=== PATIENT | male | born 1955 | race Caucasian/White ===

== ENCOUNTER 2020-02-15 05:49 | Inpatient (IN) | payer MEDICARE, OTHER ==
[2020-02-15] MEDS ORDERED: Lidocaine 1% (PF) 30 ML VIAL ONE (07:07)
[2020-02-15] MEDS ORDERED: Nitroglycerin 100MG/250ML BOT 250 ML ONE (08:11)
[2020-02-15] MEDS ORDERED: Heparin 10,000 UNITS/ 10 ML VIAL ONE (08:11)
[2020-02-15] MEDS ORDERED: Verapamil 5 MG/2 ML VIAL ONE (08:11)
[2020-02-15] MEDS ORDERED: Midazolam HCl 2 mg/2 ml Vial ONE ×4 (08:29→12:26)
[2020-02-15] MEDS ORDERED: Fentanyl 100 MCG/2 ML VIAL ONE (08:29)
[2020-02-15] MEDS ORDERED: hydrALAZINE 20 MG/ML VIAL ONE (09:30)
[2020-02-15] MEDS ORDERED: Iopamidol 370 76% 100 ML VIAL ONE (10:05)
[2020-02-15] MEDS ORDERED: Ketorolac Tromethamine 30 MG/ML VIAL ONE (10:10)
[2020-02-15] MEDS ORDERED: Magnesium Sulfate 1 GM/2 ML VIAL ONE (10:10)
[2020-02-15] MEDS ORDERED: Heparin 30,000 units/30 ml VIAL ONE (10:10)
[2020-02-15] MEDS ORDERED: Thrombin 5000 UNITS/5 ML VIAL ONE (10:10)
[2020-02-15] MEDS ORDERED: Calcium Chloride 1 GM/10 ML Abboject SYRINGE ONE (10:10)
[2020-02-15] MEDS ORDERED: Ondansetron PF 4 MG/2 ML Vial ONE (10:10)
[2020-02-15] MEDS ORDERED: Rocuronium Bromide 10 MG/ML (10ML VIAL) ONE (10:10)
[2020-02-15] MEDS ORDERED: Potassium Chloride 60 MEQ/30 ML VIAL ONE (10:10)
[2020-02-15] MEDS ORDERED: Glycopyrrolate 0.2 MG/ML 5 ML SYRINGE ONE (10:10)
[2020-02-15] MEDS ORDERED: Protamine Sulfate 250 MG/25 ML VIAL ONE (10:10)
[2020-02-15] MEDS ORDERED: Lidocaine 1% PF 5 ML VIAL ONE (10:10)
[2020-02-15] MEDS ORDERED: Vecuronium 10 MG VIAL ONE (10:10)
[2020-02-15] MEDS ORDERED: EPHEDRINE 25 MG/5 ML SYRINGE ONE (10:10)
[2020-02-15] MEDS ORDERED: Papaverine 60 MG/2 ML VIAL ONE (10:10)
[2020-02-15] MEDS ORDERED: Sodium Bicarb 50 MEQ/50 ML Abboject 8.4% SYRINGE ONE (10:10)
[2020-02-15] MEDS ORDERED: Lidocaine 2% PF 5 ML VIAL ONE (10:10)
[2020-02-15] MEDS ORDERED: Heparin 5,000 UNITS/ML VIAL ONE (10:10)
[2020-02-15] MEDS ORDERED: PROPOFOL 200 MG/20 ML VIAL ONE (10:10)
[2020-02-15] MEDS ORDERED: Aminocaproic Acid 5 GM/20 ML VIAL ONE (10:10)
[2020-02-15] MEDS ORDERED: Cardioplegic Soln 1,000 ML BAG ONE (10:10)
[2020-02-15 10:46] LABS: Cardiac Risk 2.5 (Less than 4.5)
[2020-02-15] MEDS ORDERED: Albumin 5% 500 ML ONE (11:16)
[2020-02-15] MEDS ORDERED: Communication Order-Pharmacy FS SCH (11:26)
[2020-02-15] MEDS ORDERED: Dexmedetomidine 200 MCG/2 ML VIAL ONE (11:39)
[2020-02-15] MEDS ORDERED: Phenylephrine 10 MG/ML VIAL ONE (11:39)
[2020-02-15] MEDS ORDERED: Fentanyl 250 MCG/5 ML VIAL ONE (11:39)
[2020-02-15] MEDS ORDERED: Heparin 10,000 UNITS/1 ML VIAL 30,000 UNITS in Sodium Chloride 0.9% 1,000 ML FS SCH (11:45)
[2020-02-15] MEDS ORDERED: CEFAZOLIN 2 GM in Premix Bag 1 BAG IVPB SCH (12:30)
--- NOTE | 2020-02-15 13:01 | RAD ---
XR Chest 1 View Portable HISTORY: Preop open heart surgery COMPARISON: None FINDINGS: The heart size is normal. The lungs are well expanded without focal areas of consolidation, pneumothorax or pleural effusions. IMPRESSION: No radiographic evidence of acute cardiopulmonary process.
--- NOTE | 2020-02-15 13:59 | CON ---
DATE OF CONSULTATION: 02/15/2020 REQUESTING PHYSICIAN: Dr. Carpenter. CHIEF COMPLAINT: Epigastric burning pain on exertion. HISTORY OF PRESENT ILLNESS: The patient is a 65-year-old man with minimal past medical history. He normally is quite vigorous. 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 He describes playing 18 to 36 holes of golf and using a push mower to mow thick grass. He is noted that he has begun having a bit of burning pain in his epigastrium when he does these activities. He has not had any discomfort elsewhere in his chest. He has not had any shortness of breath, diaphoresis, nausea, or radiations into his throat, jaws, shoulders, or arms. He underwent outpatient stress testing that showed a large anterior defect and he was brought in today electively for cardiac catheterization and that shows a right-dominant system with an extremely tight distal left main lesion and preserved left ventricular systolic function. PAST MEDICAL HISTORY: Significant for gout and hypertension. He has had a history of supraventricular tachycardia, but he has not tolerated beta blockade due to bradycardia. HOME MEDICATIONS: 1. Aspirin. 2. Zocor 20 mg a day. 3. Losartan. 4. Allopurinol. 5. Coenzyme Q10. SOCIAL HISTORY: The patient used to smoke, but quit smoking about 11 years ago. He started vaping at that time, but recently in the last few months has quit. FAMILY HISTORY: Significant for diabetes. No first degree relatives have known coronary or cerebrovascular disease. REVIEW OF SYSTEMS: The patient denies any eye, speech, facial, or extremity symptoms consistent with TIAs. He denies any shortness of breath, orthopnea, or PND. He denies any pedal edema. He denies any claudication. PHYSICAL EXAMINATION: VITAL SIGNS: He is 5 feet and 5 inches, and weighs 165 pounds. Heart rate is 52, blood pressure 144/73. HEENT: He has no xanthelasma. NECK: No JVD. No carotid bruits. CHEST: Clear to auscultation. HEART: He has a regular rate and rhythm. ABDOMEN: Soft and nontender. EXTREMITIES: He has easily palpable radial, femoral, and dorsalis pedis pulses. He has no obvious varicosities. He has no clubbing, cyanosis, or edema. NEUROLOGIC: Grossly nonfocal. LABORATORY EXAM: He has a white count of 17.1, hemoglobin 16.3, hematocrit 49.9, platelet count of 104,000. PT was 12.7, INR 1.0, PTT 25.1. Sodium 139, potassium 4.4, chloride 104, CO2 of 25, glucose 110, BUN 16, creatinine 1.07, and estimated GFR of 69. Triglycerides of 51, cholesterol 131, LDL 68, HDL 53. Calcium is 9.2. His chest x-ray is clear, no aortic knob calcification or cardiomegaly. His cardiac catheterization shows a right-dominant system. He has about 95% or perhaps greater lesion in his distal left main. He has small to moderate-size ramus, large LAD and circumflex system. The proximal LAD has some lesion at 50% to 60% prior to high diagonal. The circumflex proper is free of disease. There is a fairly large obtuse marginal and then the groove circumflex terminates in some tiny OMs. The right coronary has about 70% lesion in its proximal and a little bit of irregularity in its midportion near the origin of an acute marginal. The origin of the PDA appears to most likely be free of disease, but then there is scattered disease in its mid and distal portions. The posterolateral branch at least proximally appears fairly good size and is free of disease. LVEF is around 60%. Aortic pressure was 160/74 with a mean of 110 on pullback from the LV of 139/-1 with an EDP of 15. IMPRESSION AND PLAN: Extremely high-grade distal left main lesion in a patient who is currently stable. I discussed with him the natural history of left main disease and I have recommended coronary artery bypass grafting. Since it is relatively early in the day, my recommendation is to be to proceed as soon as a room is available while he is still in stable condition rather than scheduling this for tomorrow or thereafter. Job ID: [id number]
--- NOTE | 2020-02-15 16:47 | HP ---
CHIEF COMPLAINT: Angina. HISTORY OF PRESENT ILLNESS: Mr. Diaz is a very pleasant 65-year-old white gentleman, who comes to the hospital for planned heart catheterization. He was seen in the office for an irregular heartbeat. He also voiced a chest burning when he would do any exertion. Stress and echo were both performed and showed severe findings, so he was brought to the catheterization lab, and heart procedure was done this morning that showed severe left main disease about 80% to 90% stenosis and severe right coronary artery, so he was admitted as his coronary artery disease is severe and unstable. PAST MEDICAL HISTORY: 1. Hepatitis C. 2. Hyperlipidemia. 3. Hypertension. 4. Gout. 5. Chronic kidney disease, stage 3. 6. Hypogonadism. PAST SURGICAL HISTORY: None. FAMILY HISTORY: Heart disease in mother, stomach cancer and pneumonia in family members. SOCIAL HISTORY: Former tobacco use, quit smoking about one month ago. He drinks about 3 to 4 beers every day. No drug use. OUTPATIENT MEDICATIONS: 1. Aspirin 81 a day. 2. Allopurinol. 3. Coenzyme Q10. 4. Losartan 100 mg a day. 5. Simvastatin 10 mg at bedtime. ALLERGIES: NO KNOWN DRUG ALLERGIES. REVIEW OF SYSTEMS: A 12-point review of systems was done and was found to be negative other than stated in the history of present illness.. PHYSICAL EXAMINATION: VITAL SIGNS: Temperature 97.2, pulse 87, respiratory rate 16, saturating 98% on room air, and blood pressure 162/98. GENERAL: Awake, alert, and oriented x3. No distress. HEENT: Normocephalic and atraumatic. NECK: Supple. LUNGS: Clear. CARDIOVASCULAR: S1 and S2. No S3 or S4. No murmurs. No rubs. ABDOMEN: Soft. Positive bowel sounds. EXTREMITIES: No edema. SKIN: Warm and dry. LABORATORY DATA: Laboratory work was reviewed. Triglycerides of 51, cholesterol total 131, LDL of 68, and HDL of 53. White count was 17, with a slight amount of smudge cells in mostly lymphocytes, 76% lymphocytes. Coags were normal. Chemistries were unremarkable with normal GFR at 81 a month ago, 69 now, just creatinine 1.07. UA was unremarkable just a month ago. COVID PCR was not detected. ASSESSMENT: 1. Severe left main and right coronary artery disease. 2. Hypertension. 3. Hyperlipidemia. 4. Nonsustained supraventricular tachycardia, on recent monitor. PLAN: 1. Consult Cardiothoracic Surgery for coronary artery bypass grafting, should get a CURTIS to the LAD, a vein graft to circumflex, and a vein graft to the RCA. 2. We will admit him to the hospital and he is not stable to be discharged home at any point until bypass has been done. 3. Further recommendations per evaluation by Cardiothoracic Surgery. Job ID: [id number]
[2020-02-15] MEDS ORDERED: Nitroglycerin 50 MG/250 ML BOT 250 ML IVPB PRN (18:21)
[2020-02-15] MEDS ORDERED: Guaifenesin DM 100-10/5 ML UDCUP PO PRN (18:21)
[2020-02-15] MEDS ORDERED: niCARdipine 25 MG in Sodium Chloride 0.9% 250 ML 240 ML IVPB PRN (18:21)
[2020-02-15] MEDS ORDERED: Morphine 2 MG/ML VIAL SLOW IVP PRN (18:21)
[2020-02-15] MEDS ORDERED: Norepinephrine 8 MG/0.9% NS 250 ML IVPB PRN (18:21)
[2020-02-15] MEDS ORDERED: Promethazine HCl 25 MG/ML VIAL IM PRN (18:21)
[2020-02-15] MEDS ORDERED: hydrALAZINE 20 MG/ML VIAL SLOW IVP PRN (18:21)
[2020-02-15] MEDS ORDERED: Potassium Chloride 20 MEQ/100 ML PREMIX BAG IVPB PRN (18:21)
[2020-02-15] MEDS ORDERED: Ondansetron PF 4 MG/2 ML Vial IVP PRN (18:21)
[2020-02-15] MEDS ORDERED: Acetaminophen 325 MG TAB PO PRN (18:21)
[2020-02-15] MEDS ORDERED: Hetastarch 6% 500 ML 500 ML IVPB PRN (18:21)
[2020-02-15] MEDS ORDERED: Post-Op Insulin Drip Protocol IVPB ONE (18:21)
[2020-02-15] MEDS ORDERED: Mag-Al 1200 mg/1200 mg/30 ML UDCUP PO PRN (18:21)
[2020-02-15] MEDS ORDERED: Bisacodyl 10 MG SUPP PR PRN (18:21)
[2020-02-15] MEDS ORDERED: Fentanyl 100 MCG/2 ML VIAL SLOW IVP PRN ×2 (18:21)
[2020-02-15] MEDS ORDERED: Bisacodyl 5 MG TAB PO PRN (18:21)
[2020-02-15 18:22] VITALS: BMI 29.9
[2020-02-15 18:46] LABS: INR-International Normal Ratio 1.4; PTT 29.7 sec (22.9-36.1); Prothrombin Time 17.1 sec (12.0-14.7)
--- NOTE | 2020-02-15 18:46 | RAD ---
PORTABLE CHEST ONE VIEW: 02/15/20 at 6:15 p.m. HISTORY: Postop open heart surgery. FINDINGS/IMPRESSION: Comparison made with exam of earlier today. Changes of median sternotomy are seen. There is a right subclavian central line with tip in the proje ction of the cavoatrial junction. Mediastinal drains were present. The heart size is normal. The aort a is tortuous. No lobar consolidation, pneumothoraces or pleural effusions are seen. POS: MZA
[2020-02-15 18:55] LABS: Anion Gap 15 mmol/L (10-20); BUN (Urea Nitrogen) 16 mg/dL (8.4-25.7); Calc. Creatinine Clearance 93 mL/min (70-130); Carbon Dioxide 19 mmol/L (23-31); Chloride 112 mmol/L (98-107); Estimated GFR-MDRD 85; Glucose 151 mg/dL (80-115); Potassium 4.6 mmol/L (3.5-5.1); Sodium 141 mmol/L (136-145)
[2020-02-15 18:59] LABS: Hemoglobin 13.6 g/dL (14.0-18.0); Mean Corpuscular HGB CONC 33.3 g/dL (32.0-36.0); Mean Corpuscular Hemoglobin 32.3 pg (27.0-31.0); Mean Corpuscular Volume 96.9 fL (78.0-98.0); Mean Platelet Volume 8.7 fL (7.4-10.4); Platelet Count 88 thou/uL (130-400); RBC Distribution Width 12.3 % (11.5-14.5); Red Blood Cell (RBC) Count 4.21 mill/uL (4.70-6.10); White Blood Cell (WBC) Count 20.8 thou/uL (4.8-10.8)
[2020-02-15] MEDS ORDERED: Dextrose 50% Abboject 50 ML SYRINGE SLOW IVP PRN (19:15)
[2020-02-15] MEDS ORDERED: Insulin Regular 300 UNITS/3 ML VIAL SC PRN (19:15)
[2020-02-15] MEDS ORDERED: HUMULIN R 100 UNITS in Sodium Chloride 0.9% 100 ML IVPB SCH (19:15)
[2020-02-15] MEDS ORDERED: Dextrose 5% in Water 1,000 ML IV PRN (19:15)
[2020-02-15 19:20] LABS: Band 30 % (5-11); Lymphocytes 15 % (21-51); MDiff Complete? YES; Monocytes 4 % (0-10); Neutrophil 46 % (42-75); Platelet Morphology Comment Appears Decreased; Polychromasia SLIGHT = 2-3 cells (100X) (0-2/hpf); Reactive Lymphocytes 5 % (0-10)
[2020-02-15] MEDS: HYDROcodone/Acetaminophen 5/325 mg Tablet PO PRN (19:27)
[2020-02-15] MEDS: Famotidine/PF 20 mg/2ml Vial SLOW IVP SCH (20:19)
--- NOTE | 2020-02-15 20:25 | OP ---
DATE OF PROCEDURE: 02/15/2020 PROCEDURES PERFORMED: Emergent coronary artery bypass grafting x4 with left internal mammary artery to the distal LAD and reverse greater saphenous vein graft from aorta to the ramus intermedius, from the aorta to the first obtuse marginal, and from the aorta to the RCA/PDA; sternal marrow biopsy. PREOPERATIVE DIAGNOSIS: Left main coronary artery disease; possible blood dyscrasia. POSTOPERATIVE DIAGNOSIS: Left main coronary artery disease; possible blood dyscrasia. DRIVER MERCHANDISER: Chago. ANESTHESIA: General endotracheal anesthesia. INDICATIONS: The patient is a 65-year-old man with minimal past medical history, who had been having stable pattern of exertional epigastric discomfort. He had a large anterior defect on stress testing and cardiac catheterization demonstrated a subtotal distal left main lesion. He had leukocytosis with some concern about lymphocyte morphology on his preoperative studies. FINDINGS: Pump time 94 minutes. Cross-clamp time 66 minutes. Good quality JEREMIAS and saphenous vein. The saphenous vein got a little bit small below the knee. There was palpable plaque in the posterior aspect of the base of the innominate artery and the right posterolateral aspect of the ascending aorta prompting construction of proximal vein graft anastomoses under cross-clamp. The LAD was about 2 mm, good quality vessel. The ramus intermedius was about 1.5 mm. The OM was about 2 mm. The RCA was about 2 to 2.5 mm. The PDA was about 1.5 mm proximally. It was a diffusely diseased vessel that got very small distally. DESCRIPTION OF PROCEDURE: After informed consent was obtained, the patient was taken to the operating room, placed in supine position on the operating table. After the induction of general anesthesia, his left greater saphenous vein was ultrasonographically mapped and marked. He was placed in Trendelenburg. His right upper chest was prepped and draped in sterile fashion. A triple-lumen central line kit was used to place right subclavian central line by the Seldinger technique. All 3 ports easily aspirated and flushed. The line was secured. The patient's torso, groins, and lower extremities were prepped and draped in sterile fashion. An incision was made just above the left knee to expose the greater saphenous vein. It was endoscopically harvested using that as a port site from groin to mid calf. A small stab incision prove feasible for the distal ligation and division point. A slightly larger incision was made in the groin. The groin and distal thigh incisions were closed in layers of subcutaneous and subcuticular Vicryl. Ultimately, all three were treated with Dermabond. A median sternotomy was performed. The left internal mammary artery was harvested as a skeletonized in-situ graft from the level of the xiphoid to the level of the subclavian vein after having harvested marrow from either side of the manubrium with a curette and sending it for Pathology. The patient was heparinized. The mammary was ligated and divided distally. There was good flow through the mammary and it dilated nicely with papaverine solution. Hilar reflections of the pleura were mobilized. Mammary bed was inspected for hemostasis. The JEREMIAS retractor was replaced with a Acosta retractor. The pericardium was opened and marsupialized. The aorta was palpated and some plaque could be appreciated at the base of the innominate artery posteriorly. The remainder of the intrapericardial aorta felt soft. A double concentric pursestring of 2-0 Ethibond was placed in the ascending aorta at the pericardial reflection and a single pursestring was placed in the right atrial appendage. Aortic and venous cannulae were inserted and secured by their pursestrings. The plane between the aorta and the pulmonary artery was developed. Cardiopulmonary bypass was instituted and the patient was systemically cooled. The ascending aorta was again palpated and a large island of plaque in the right posterior lateral aspect was identified. There was a space between the innominate and the distal extent of that plaque that would allow for clamping with slightly oblique angle of positioning of the clamp. A longitudinal slit was made in the pericardium anterior to the left phrenic nerve, through which the mammary could be passed with the flows quite low on the cardiopulmonary bypass circuit. The aorta was cross clamped. Cardioplegia was administered through an aortic root needle. When arrest been achieved, attention was turned to the distal right coronary system. PDA was a diffusely diseased vessel and was quite small out beyond the extent of that disease. The crux was exposed. There was firm plaque in the distal right coronary and the crux and proximal PDA were rather leathery, but soft enough to open. Angiographically, they had appeared to be wide open. The crux was opened and arteriotomy was extended onto the PDA. Reverse greater saphenous vein was anastomosed there end-to-side with running 6-0 Prolene suture and the anastomosis tested by flushing cold cardioplegia down the graft, the OM1 and then the ramus for each opening graft in a similar fashion. The LAD was opened distally and the mammary was anastomosed to it with running 7-0 Prolene. The mammary was tacked to the epicardium. Additional cardioplegia was administered and then three aortotomies was made in the ascending aorta with a scalpel and punch. The right coronary system graft was brought along the right side of the heart and anastomosed to the more proximal aortotomy. The ramus and OM grafts were anastomosed to the middle and distal aortotomy respectively with the OM suture line frustrated. The patient was placed in Trendelenburg. The bulldog was removed from the mammary pedicle and cardioplegia was administered through the aortic root needle to help flush the aortic root of air. The suture line was secured and the root needle was placed back on suction. The cross-clamp was removed. The vein grafts were de-aired and the bulldogs were removed from them. The anastomoses were inspected for hemostasis. The posterior pericardial drain was brought out through a separate incision and secured with suture. Right atrial and right ventricular temporary epicardial pacing wires were placed. The patient was allowed to eject. The root needle was removed and its insertion site oversewn with fine Prolene. When the cross-clamp had been off, approximately 15 minutes, the patient was adequately rewarmed and had good visible contractility. He was easily from cardiopulmonary bypass. Aortic and venous cannulae were removed and the pursestring secured. Protamine was administered. When hemostasis was adequate, an anterior mediastinal drain was placed and the pericardium was easily closed over with running Vicryl. The cut surface of the sternum was treated with vancomycin paste and platelet-rich GPS. The sternum was reapproximated with #7 stainless steel wires. The soft tissues were irrigated and treated with platelet-poor GPS. The fascia was closed over the wires with running #1 Vicryl. The subcutaneous tissue was reapproximated with running 2-0 Vicryl and the skin was closed with a 3-0 Vicryl subcuticulars stitch. Dermabond and dressings were applied, and the patient was awakened and extubated in the operating room and taken to the intensive care unit in stable condition. Job ID: [id number]
[2020-02-15] MEDS: Sodium Chloride 0.9% 1,000 ML IV SCH (20:37)
[2020-02-15] MEDS ORDERED: Atorvastatin Calcium 10 MG TAB PO SCH (21:00)
[2020-02-15] MEDS ORDERED: Docusate 100 MG CAP PO SCH (21:00)
[2020-02-15] MEDS ORDERED: Allopurinol 100 MG TAB PO SCH (21:00)
[2020-02-16] MEDS: HumaLOG 300 UNITS/3 ML VIAL SC PRN ×2 (00:15→04:21)
[2020-02-16 00:42] LABS: Hemoglobin 13.3 g/dL (14.0-18.0)
[2020-02-16 00:51] LABS: Potassium 4.5 mmol/L (3.5-5.1)
[2020-02-16] MEDS: Sodium Chloride 0.9% 1,000 ML IV SCH ×2 (02:28→18:52)
[2020-02-16 03:55] LABS: Anion Gap 13 mmol/L (10-20); BUN (Urea Nitrogen) 19 mg/dL (8.4-25.7); Calc. Creatinine Clearance 86 mL/min (70-130); Calcium 7.7 mg/dL (7.8-10.44); Carbon Dioxide 17 mmol/L (23-31); Chloride 112 mmol/L (98-107); Estimated GFR-MDRD 78; Glucose 193 mg/dL (80-115); Potassium 4.3 mmol/L (3.5-5.1); Sodium 138 mmol/L (136-145)
[2020-02-16 04:54] LABS: Band 6 % (5-11); Lymphocytes 55 % (21-51); MDiff Complete? YES; Mean Corpuscular HGB CONC 33.6 g/dL (32.0-36.0); Mean Corpuscular Hemoglobin 32.6 pg (27.0-31.0); Mean Corpuscular Volume 97.2 fL (78.0-98.0); Mean Platelet Volume 9.5 fL (7.4-10.4); Monocytes 6 % (0-10); Neutrophil 33 % (42-75); Platelet Count 107 thou/uL (130-400); Platelet Morphology Comment Appears Decreased; RBC Distribution Width 12.5 % (11.5-14.5); Red Blood Cell (RBC) Count 3.97 mill/uL (4.70-6.10)
--- NOTE | 2020-02-16 07:46 | RAD ---
EXAM: CHEST ONE VIEW HISTORY: Post open heart surgery. Follow-up evaluation COMPARISON: None 2019 FINDINGS: Median sternotomy wires are again seen. Right subclavian central venous catheter and mediastinal drai ns are again noted in place. Cardiac silhouette is magnified by projection. There is mild atelectasis present at the left lung base and in the right infrahilar region. No consolidation or ple ural fluid is seen. Mild gaseous distention of the stomach is visualized. Surgical clips overlie the medial left upper quadrant. No other interval change. IMPRESSION: 1. Postoperative changes related to median sternotomy. Lines and tubes stable in position. 2. Bibasilar atelectasis.
[2020-02-16] MEDS: Aspirin Chewable 81 MG TAB PO SCH (08:48)
[2020-02-16] MEDS: Famotidine/PF 20 mg/2ml Vial SLOW IVP SCH ×2 (08:48→20:14)
[2020-02-16] MEDS ORDERED: Aspirin 81 mg Enteric Coated Tablet PO SCH (09:00)
[2020-02-16] MEDS ORDERED: Non-Formulary Item 1 EACH (Ubidecarenone [Co Q-10] 100 MG Capsule) PO SCH (09:00)
[2020-02-16] MEDS ORDERED: Insulin Regular 300 UNITS/3 ML VIAL SC PRN (09:45)
[2020-02-16] MEDS: HYDROcodone/Acetaminophen 5/325 mg Tablet PO PRN ×4 (10:14→23:05)
--- NOTE | 2020-02-16 18:48 | PDOC.CPN ---
- Subjective Date: 02/16/20 Time: 18:46 Interval history: He is doing much better today. He is sitting up on the chair with good spirits. Sore on chest but otherwise feels better this evening than this morning. - Review of Systems General: denies: fever/chills, weight/appetite/sleep changes, night sweats, fatigue Respiratory: denies: cough, congestion, shortness of breath, exercise intolerance Cardiovascular: reports: chest pain. denies: palpitation, edema, paroxysmal nocturnal dyspnea, orthopnea Gastrointestinal: denies: nausea, vomiting, diarrhea, constipation, abd pain, GI bleeding Musculoskeletal: denies: pain, tenderness, stiffness, swelling, arthritis/arthralgias Neurological: denies: numbness, syncope, seizure, weakness - Objective Allergies/Adverse Reactions: Allergies Allergy/AdvReac Type Severity Reaction Status Date / Time beta blockers Allergy Uncoded 02/10/20 13:06 Visit Medications: Current Medications Acetaminophen (Acetaminophen 325 Mg Tab) 650 mg PO Q6H PRN PRN Reason: Headache/Fever Or Mild Pain Hydrocodone Bitart/Acetaminophen (Hydrocodone/Acetaminophen 5/325 Mg Tablet) 1 tab PO Q4H PRN PRN Reason: Moderate Pain (4-6) Last Admin: 02/16/20 10:14 Dose: 1 tab Documented by: Hydrocodone Bitart/Acetaminophen (Hydrocodone/Acetaminophen 5/325 Mg Tablet) 2 tab PO Q4H PRN PRN Reason: Severe Pain (7-10) Last Admin: 02/16/20 13:44 Dose: 2 tab Documented by: Al Hydroxide/Mg Hydroxide (Mag-Al 1200 Mg/1200 Mg/30 Ml Udcup) 30 ml PO Q4H PRN PRN Reason: Indigestion Albuterol/Ipratropium (Ipratropium/Albuterol Sulfate 3 Ml Neb) 3 ml NEB [id number] PRN PRN Reason: SOB Aspirin (Aspirin Chewable 81 Mg Tab) 81 mg PO DAILY CHAYITO Last Admin: 02/16/20 08:48 Dose: 81 mg Documented by: Bisacodyl (Bisacodyl 5 Mg Tab) 10 mg PO Q12H PRN PRN Reason: Constipation Bisacodyl (Bisacodyl 10 Mg Supp) 10 mg SC Q12H PRN PRN Reason: Constipation Dextrose/Water (Dextrose 50% Abboject 50 Ml Syringe) 25 gm SLOW IVP PRN PRN PRN Reason: PER HYPOGLYCEMIC PROTOCOL Famotidine (Famotidine/Pf 20 Mg/2ml Vial) 20 mg SLOW IVP Q12HR [facility] Last Admin: 02/16/20 08:48 Dose: 20 mg Documented by: Fentanyl (Fentanyl 100 Mcg/2 Ml Vial) 25 mcg SLOW IVP Q2H PRN PRN Reason: Moderate Pain (4-6) Stop: 02/17/20 18:05 Fentanyl (Fentanyl 100 Mcg/2 Ml Vial) 50 mcg SLOW IVP Q2H PRN PRN Reason: Severe Pain (7-10) Stop: 02/17/20 18:05 Glucagon (Glucagon 1 Mg/Ml Vial) 1 mg SC PRN PRN PRN Reason: PER HYPOGLYCEMIC PROTOCOL Guaifenesin/Dextromethorphan (Guaifenesin Dm 100-10/5 Ml Udcup) 15 ml PO Q4H PRN PRN Reason: Cough Hydralazine HCl (Hydralazine 20 Mg/Ml Vial) 10 mg SLOW IVP Q6H PRN PRN Reason: To Maintain SBP< 140mmHG Nitroglycerin/Dextrose (Nitroglycerin 50 Mg/250 Ml Bot) 250 mls @ 0 mls/hr IVPB PRN PRN; Protocol PRN Reason: To Maintain SBP< 140mmHG Nicardipine HCl 25 mg/ Sodium (Chloride) 250 mls @ 0 mls/hr IVPB INF PRN; Protocol PRN Reason: To Maintain SBP< 140mmHG Sodium Chloride (Normal Saline 0.9%) 1,000 mls @ 100 mls/hr IV .Q10H [facility] Last Admin: 02/16/20 02:28 Dose: 1,000 mls Documented by: Norepinephrine Bitartrate (Levophed) 250 mls @ 0 mls/hr IVPB PRN PRN; Protocol PRN Reason: To maintain SBP > 90 mmHG Last Admin: 02/15/20 19:50 Dose: 250 mls Documented by: Dextrose/Water (D5w) 1,000 mls @ 0 mls/hr IV INF PRN PRN Reason: PRN HYPOGLYCEMIC PROTOCOL Insulin Glargine (Lantus 100 Units/Ml Vial) 0 units SC ONE PRN PRN Reason: PER OPEN HEART ORDERS Stop: 02/22/20 19:16 Insulin Human Regular (Insulin Regular 300 Units/3 Ml Vial) 0 units SC .MODERATE SLIDING SC PRN; Protocol PRN Reason: MODERATE SLIDING SCALE Morphine Sulfate (Morphine 2 Mg/Ml Vial) 2 mg SLOW IVP Q15MIN PRN PRN Reason: Severe Pain (7-10) Last Admin: 02/15/20 19:27 Dose: 2 mg Documented by: Ondansetron HCl (Ondansetron Pf 4 Mg/2 Ml Vial) 4 mg IVP Q6H PRN PRN Reason: Nausea/Vomiting Potassium Chloride (Potassium Chloride 20 Meq/100 Ml Premix Bag) 20 meq IVPB PRN PRN PRN Reason: K level </= 4.0 Promethazine HCl (Promethazine Hcl 25 Mg/Ml Vial) 6.25 mg IM Q4H PRN PRN Reason: Nausea/Vomiting Vital Signs & Weight: Vital Signs Temp Pulse Ox 02/16/20 16:00 98.9 F 02/16/20 12:00 98.6 F 97 02/16/20 08:00 98.6 F 97 Weight 179 lb 14.355 oz - Physical Exam General: alert & oriented x3 HEENT: mucus membranes moist Neck: supple neck Cardiac: regular rate and rhythm Lungs: normal breath sounds Neuro: grossly intact Abdomen: active bowel sounds Extremities: no edema Skin: clear Musculoskeletal: no pain - Labs Result Diagrams: 02/16/20 03:00 02/16/20 03:00 - Telemetry Sinus rhythms and dysrhythmias: sinus rhythm - Assessment/Plan Assessment/Plan: 1. Severe LM and RCA disease. 2. S/P CABG x 4. CURTIS to LAD< SVG to IR, SVG to OM, SVG to RCA 3. Elevated white count with smudge cells. PLAN: - Sternal bone marrow biospy done, awaiting results. - Will consult Hematology. - ASA, statin for life. - BB and ARB once BP allows. - PT as tolerated.
[2020-02-16] MEDS ORDERED: Bisacodyl 10 MG SUPP PR PRN (19:54)
[2020-02-16] MEDS ORDERED: diphenhydrAMINE 25 MG CAP PO PRN (19:54)
[2020-02-16] MEDS ORDERED: Mineral Oil ENEMA PR PRN (19:54)
[2020-02-16] MEDS ORDERED: Guaifenesin DM 100-10/5 ML UDCUP PO PRN (19:54)
[2020-02-16] MEDS ORDERED: Zolpidem Tartrate 5 MG TAB PO PRN (19:54)
[2020-02-16] MEDS ORDERED: Mag-Al 1200 mg/1200 mg/30 ML UDCUP PO PRN (19:54)
[2020-02-16] MEDS ORDERED: Bisacodyl 5 MG TAB PO PRN (19:54)
[2020-02-16] MEDS: Atorvastatin Calcium 20 MG TAB PO SCH (20:14)
[2020-02-17] MEDS: HYDROcodone/Acetaminophen 5/325 mg Tablet PO PRN ×2 (03:10→21:15)
[2020-02-17 04:41] LABS: Mean Corpuscular HGB CONC 33.3 g/dL (32.0-36.0); Mean Corpuscular Hemoglobin 32.5 pg (27.0-31.0); Mean Corpuscular Volume 97.4 fL (78.0-98.0); Mean Platelet Volume 8.8 fL (7.4-10.4); Platelet Count 78 thou/uL (130-400); RBC Distribution Width 12.5 % (11.5-14.5); Red Blood Cell (RBC) Count 3.38 mill/uL (4.70-6.10); White Blood Cell (WBC) Count 27.3 thou/uL (4.8-10.8)
[2020-02-17 04:56] LABS: Band 5 % (5-11); Lymphocytes 39 % (21-51); MDiff Complete? YES; Monocytes 10 % (0-10); Neutrophil 46 % (42-75); Platelet Morphology Comment Appears Decreased
[2020-02-17 05:12] LABS: Anion Gap 14 mmol/L (10-20); BUN (Urea Nitrogen) 17 mg/dL (8.4-25.7); Calc. Creatinine Clearance 102 mL/min (70-130); Carbon Dioxide 20 mmol/L (23-31); Chloride 103 mmol/L (98-107); Estimated GFR-MDRD Greater than 90; Glucose 129 mg/dL (80-115); Potassium 4.3 mmol/L (3.5-5.1); Sodium 133 mmol/L (136-145)
--- NOTE | 2020-02-17 08:13 | RAD ---
EXAM: Single view of the chest HISTORY: Status post CABG COMPARISON: 02/16/2020 FINDINGS: Single view of the chest shows an enlarged but stable cardiomediastinal silhouette. The li db and tubes are unchanged in position. The patient is status post sternotomy. Atelectasis is seen in the left lung base. No acute osseous abnormality. IMPRESSION: Stable exam
[2020-02-17] MEDS: Famotidine/PF 20 mg/2ml Vial SLOW IVP SCH ×2 (08:22→21:05)
[2020-02-17] MEDS: Aspirin Chewable 81 MG TAB PO SCH (08:22)
--- NOTE | 2020-02-17 14:04 | PRG ---
DATE OF SERVICE: 02/17/2020 SUBJECTIVE: Mr. Diaz is doing well. He has been up walking the halls. He walked 500 feet. OBJECTIVE: VITAL SIGNS: Blood pressure 114/56, pulse 94 and regular. LUNGS: Clear. CARDIAC: Normal S1, normal S2. ABDOMEN: Soft, nontender. ASSESSMENT: 1. Status post bypass surgery, doing very well. 2. Increased white blood cell count. PLAN: 1. He is on aspirin . 2. Likely consider beta blockers once blood pressure allows. Dr. Buenrostro will be seeing this weekend. Job ID: [id number]
[2020-02-17] MEDS ORDERED: Furosemide 40 MG TAB PO SCH (14:15)
--- NOTE | 2020-02-17 14:39 | CON ---
DATE OF CONSULTATION: REASON FOR CONSULTATION: Leukocytosis. HISTORY OF PRESENT ILLNESS: Mr. Diaz is a pleasant 65-year-old gentleman, who was admitted for cardiac catheterization and eventually had a CABG. He was noted to have elevated white count of 17 with a lymphocyte count of 76% on arrival. Peripheral smear was concerning for lymphoproliferative disorder. He also had a thrombocytopenia. The thrombocytopenia has been present on prior labs as far back as July, his WBC was normal at that time. He is recovering from his CABG and was seen at bedside. He denies any history of night sweats, chills, or fevers. No itching or rash. No family history of lymphoproliferative disorder. PAST MEDICAL HISTORY: 1. Hyperlipidemia. 2. Hypertension. 3. Gout. 4. Chronic kidney disease stage 3. 5. Hypogonadism. PAST SURGICAL HISTORY: CABG. ALLERGIES: NO KNOWN DRUG ALLERGIES. HOME MEDICATIONS: 1. Allopurinol. 2. CoQ10. 3. Losartan. 4. Ecotrin. 5. Zocor. FAMILY HISTORY: Grandmother had stomach cancer. Sister had some sort of neck cancer. SOCIAL HISTORY: Quit smoking cigarettes 11 years ago, stopped vaping recently. Drinks 4 to 6 beers daily. No drug use. REVIEW OF SYSTEMS: A 10-point review of systems is negative except for noted in HPI. PHYSICAL EXAMINATION: VITAL SIGNS: Temperature is 98.9, pulse is 99, respiratory rate is 16, BP is 115/72, he is 96% on room air. GENERAL: This is a well-developed, well-nourished male, in no acute distress. HEENT: Normocephalic, atraumatic. Pupils are equal and reactive to light. NECK: Supple. CV: Regular rate and rhythm. LUNGS: Clear. ABDOMEN: Soft and nontender. Bowel sounds are positive. There is no hepatosplenomegaly. EXTREMITIES: No clubbing or cyanosis. SKIN: He has a midline incision of his chest. No drainage. NEUROLOGIC: Nonfocal. LYMPH: There is no palpable cervical, supraclavicular, axillary, or inguinal lymphadenopathy. PERTINENT LABORATORY DATA AND X-RAYS: Current WBCs 27.3, hemoglobin 11, hematocrit 32.9, platelet count is 78,000, he has 46% neutrophils, 5% bands, 39% lymphocytes. PT is 17.1, INR is 1.4, and PTT is 29.7. Sodium 139, potassium 4.4, chloride 104, CO2 is 25, BUN is 16, creatinine 1.07, uric acid 5.4, calcium 9.2, total bilirubin 0.8, AST is 25, ALT is 36, alkaline phosphatase is 71, serum total protein 6.3, albumin 4.3, globulin 2. Urine is negative. COVID-19 PCR is not detected. ASSESSMENT: 1. Coronary artery disease, status post coronary artery bypass grafting. 2. Leukocytosis with lymphocytosis on admission, possible CLL. DISCUSSION: The patient is recovering nicely and may be ready for discharge this weekend. He has no complaints. He did have a sternal bone marrow biopsy during his CABG. Results are currently pending. He may have CLL/SLL. He has no lymphadenopathy. He is also asymptomatic and is unlikely to need any treatment at this time. He would need to be monitored by our clinic. We will have him follow up in our clinic if he is discharged this weekend. Case has been discussed with Dr. Souza. Thank you for the consult. Job ID: [id number] [facility]
[2020-02-17] MEDS: Atorvastatin Calcium 20 MG TAB PO SCH (21:05)
[2020-02-18 05:32] LABS: Anion Gap 12 mmol/L (10-20); BUN (Urea Nitrogen) 15 mg/dL (8.4-25.7); Calc. Creatinine Clearance 99 mL/min (70-130); Calcium 8.1 mg/dL (7.8-10.44); Carbon Dioxide 23 mmol/L (23-31); Chloride 102 mmol/L (98-107); Estimated GFR-MDRD 88; Glucose 109 mg/dL (80-115); Potassium 3.9 mmol/L (3.5-5.1); Sodium 133 mmol/L (136-145)
[2020-02-18 06:08] LABS: Band 8 % (5-11); Hemoglobin 10.4 g/dL (14.0-18.0); Lymphocytes 39 % (21-51); MDiff Complete? YES; Mean Corpuscular HGB CONC 32.3 g/dL (32.0-36.0); Mean Corpuscular Hemoglobin 31.5 pg (27.0-31.0); Mean Corpuscular Volume 97.5 fL (78.0-98.0); Mean Platelet Volume 9.3 fL (7.4-10.4); Monocytes 12 % (0-10); Neutrophil 41 % (42-75); Platelet Count 80 thou/uL (130-400); Platelet Morphology Comment Appears Decreased; RBC Distribution Width 12.5 % (11.5-14.5); Red Blood Cell (RBC) Count 3.29 mill/uL (4.70-6.10); White Blood Cell (WBC) Count 22.9 thou/uL (4.8-10.8)
[2020-02-18] MEDS ORDERED: Furosemide 40 MG TAB PO SCH (07:30)
[2020-02-18] MEDS: Aspirin Chewable 81 MG TAB PO SCH (08:49)
[2020-02-18] MEDS: Famotidine/PF 20 mg/2ml Vial SLOW IVP SCH (08:49)
[2020-02-18 11:46] VITALS: TEMP 98.5
[2020-02-18 11:52] VITALS: BP 119/70
--- NOTE | 2020-02-20 15:11 | EKG ---
Test Reason : Blood Pressure : / mmHG Vent. Rate : 082 BPM Atrial Rate : 082 BPM P-R Int : 128 ms QRS Dur : 082 ms QT Int : 390 ms P-R-T Axes : 073 079 078 degrees QTc Int : 455 ms Normal sinus rhythm Normal ECG No previous ECGs available Confirmed by BUD TIM M.D. ([id number]) on 02/20/2020 3:11:14 PM Referred By: JONNATHAN Confirmed By:BUD TIM M.D.
--- NOTE | 2020-02-21 01:54 | DIS ---
DATE OF ADMISSION: 02/15/2020 DATE OF DISCHARGE: 02/18/2020 PRINCIPAL DIAGNOSIS: Left main coronary artery disease. SECONDARY DIAGNOSES: Gout, hypertension, and possible chronic lymphocytic leukemia. PROCEDURES PERFORMED: Cardiac catheterization from 02/15/2020, emergent coronary artery bypass grafting x4 with left internal mammary artery to the distal LAD and reverse greater saphenous vein graft from the aorta to the RCA/PDA, from the aorta to the ramus intermedius and from the aorta to the first obtuse marginal and concomitant sternal marrow biopsy from 02/15/2020. HISTORY OF PRESENT ILLNESS AND HOSPITAL COURSE: The patient is a 65-year-old man who is very active and has minimal past medical history. He had a stable pattern of class 1 or 2 angina, manifest as burning epigastric discomfort on exertion and an outpatient stress test demonstrated a large anterior perfusion defect. Cardiac catheterization demonstrated a right-dominant system with significant lesion in the right coronary proper and diffuse disease in the PDA, but he also had an extremely high-grade distal left main lesion, one view in particular almost made it look like there was discontinuity between the left main and its trifurcation. He was taken emergently in stable condition for surgical revascularization. He had an asymptomatic leukocytosis that was lymphocyte-predominant on his screening lab work. His white count was 17.1 with 76% lymphocytes. In July of this year, his white count was 10.7 with 58% lymphocytes. Marrow was sampled from either side of the longitudinally divided sternal manubrium that was not an adequate specimen for complete panel of immunohistochemical markers and flow cytometry, but it did show a population of CD5 positive B-cells suggestive of chronic lymphocytic leukemia. His postoperative course was extremely smooth. He was awakened and extubated in the operating room. He had very modest pressor requirements during the night and the morning of postoperative day #1. He was transferred out of intensive care unit in the evening of postoperative day #1. He only had 100 mL of chest tube output over that night and during the course of the day on postoperative day #2, he had scant additional output and his mediastinal tubes were removed. Although he had no heart block or bradycardic episodes during his hospitalization, he is reported to have a documented history of bradycardia with beta blockade and beta blockers were deferred. Pacing wires were removed and at the same time his mediastinal tubes were removed and his heart rates remained around 90 with a systolic blood pressure around 110 at the time of discharge. His losartan was held during the course of his hospital stay because of blood pressures being low enough, there was concern that he would not tolerate it. He was discharged home on postoperative day #3 to resume his home doses of allopurinol, Zocor, coenzyme Q10, and baby aspirin. He is written a prescription for Wasta as needed for pain and his losartan is being held. Beta blockade was deferred because of his known history of bradycardia with beta blockers. Job ID: [id number]
== END 2020-02-18 13:25 | disposition home or self-care (01) | DRG 234 ==
LOC: SDC 05:49 → 2NO 08:57 → CCU 14:28 → 2NO 02-16 21:01
PROVIDERS: ADMIT Internal Medicine Cardiovascular Disease; ATTEND Internal Medicine Cardiovascular Disease
PROC: 02100Z9 Bypass Coronary Artery, One Artery from Left Internal Mammary, Open Approach (ICD-10-PCS; principal; 2020-02-15)
PROC: B2111ZZ Fluoroscopy of Multiple Coronary Arteries using Low Osmolar Contrast (ICD-10-PCS; 2020-02-15)
PROC: 021209W Bypass Coronary Artery, Three Arteries from Aorta with Autologous Venous Tissue, Open Approach (ICD-10-PCS; 2020-02-15)
PROC: 06BQ4ZZ Excision of Left Saphenous Vein, Percutaneous Endoscopic Approach (ICD-10-PCS; 2020-02-15)
PROC: 5A1221Z Performance of Cardiac Output, Continuous (ICD-10-PCS; 2020-02-15)
PROC: 07DQ0ZX Extraction of Sternum Bone Marrow, Open Approach, Diagnostic (ICD-10-PCS; 2020-02-15)
PROC: B2151ZZ Fluoroscopy of Left Heart using Low Osmolar Contrast (ICD-10-PCS; 2020-02-15)
PROC: 4A023N7 Measurement of Cardiac Sampling and Pressure, Left Heart, Percutaneous Approach (ICD-10-PCS; 2020-02-15)
DX: I25.10 Atherosclerotic heart disease of native coronary artery without angina pectoris (principal); I47.1 Supraventricular tachycardia; I12.9 Hypertensive chronic kidney disease with stage 1 through stage 4 chronic kidney disease, or unspecified chronic kidney disease; E78.5 Hyperlipidemia, unspecified; N18.3 Chronic kidney disease, stage 3 (moderate); D72.829 Elevated white blood cell count, unspecified; D69.6 Thrombocytopenia, unspecified; E29.1 Testicular hypofunction; Z79.82 Long term (current) use of aspirin; Z79.899 Other long term (current) drug therapy; Z87.891 Personal history of nicotine dependence
CPT/HCPCS: 36415; 36416; 36430; 71045; 80048; 80061; 84132; 85014; 85018; 85025; 85610; 85730; 86850; 86900; 86901; 88305; 88311; 88341; 88342; 93005; 93010; 93458; 93798; 99152; 99153; J0360; J0690; J1642; J1644; J1885; J2001; J2250; J2270; J2370; J2405; J2440; J2704; J2720; J3010; J3370; J3475; J3480; P9045; Q9967; S0017; S0028